=== PATIENT | female | born 1945 | race Caucasian/White ===

== ENCOUNTER 2017-01-29 15:58 | Observation (INO) | payer MEDICARE ==
[2017-01-29] MEDS ORDERED: NS 0.9% 1000 ML* 1,000 ML IV ONE (16:07)
[2017-01-29] MEDS ORDERED: Morphine INJ* 4 MG/ML 1 ML SYRINGE IV ONE ×2 (16:23→17:36)
[2017-01-29] MEDS ORDERED: Ondansetron INJ* 2 MG/ML VIAL IV ONE (16:23)
[2017-01-29 16:27] LABS: Hematocrit 46 % (35-47); Hemoglobin 14.6 g/dl (12.0-16.0); Mean Corpuscular HGB Conc 32 g/dl (31-36); Mean Corpuscular Hemoglobin 28 pg (27-31); Mean Corpuscular Volume 86 fL (80-97); Mean Platelet Volume 8 um3 (7.4-10.4); Red Blood Count 5.31 10^6/ul (4.0-5.4); Red Cell Distribution Width 14 % (10.5-15); White Blood Count 25.6 10^3/ul (3.5-10.8)
[2017-01-29 16:31] LABS: Add Diff/Slide Review? Slide Review Added; Comments Flag Yes
--- NOTE | 2017-01-29 16:41 | RAD ---
indication: Pain after the patient fell from a ladder. COMPARISON: None A CT scan of the brain and c-spine was performed without intravenous contrast enhancement. Contiguous axial sections were obtained from the lung apices through the vertex. BRAIN: The ventricles, cisterns and sulci are within normal limits. No significant focal abnormality or mass effect is seen. The carter-white differentiation is adequately maintained. There is no evidence for intracranial hemorrhage. No significant bony abnormality is present. The mastoid air cells are appropriately aerated. The visualized paranasal sinuses are clear. C-SPINE: On the sagittal view images there is straightening of the normal cervical lordosis. The vertebral bodies and facet joints appear to be appropriately aligned. Multilevel degenerative changes include loss of intervertebral disc height and marginal osteophyte formation, most severely affecting C4/C5. The dens is intact. The atlantodental interval is not widened. Degenerative changes at the atlantodental interval include vacuum disc phenomenon and marginal osteophyte formation of the surrounding ligaments. There is no precervical soft tissue swelling There is no hyperdense material in the cervical canal to indicate hemorrhage. The visualized musculature and soft tissues are normal. There is no gross lymphadenopathy visualized. The visualized portion of the lung apices are clear. IMPRESSION: 1. No calvarial fracture or acute intracranial hemorrhage. 2. Degenerative changes of the cervical spine and nonspecific straightening of the normal cervical lordosis without evidence of an acute fracture or dislocation.
[2017-01-29 16:43] LABS: Albumin 4.3 g/dL (3.2-5.2); BUN/Creatinine Ratio 29.5 (8-20); Calcium 9.9 mg/dL (8.6-10.3); EGFR African American 61.9 (>60); EGFR Non-African American 48.1 (>60); Globulin 3.2 g/dL (2-4); Magnesium 1.9 mg/dL (1.9-2.7); Potassium 3.6 mmol/L (3.5-5.0); Total Bilirubin 0.5 mg/dL (0.2-1.0); Total Protein 7.5 g/dL (6.4-8.9)
[2017-01-29 17:01] LABS: TSH (Thyroid Stimulating Horm) 4.82 mcIU/mL (0.34-5.60)
--- NOTE | 2017-01-29 17:59 | RAD ---
INDICATION: Left shoulder pain after falling from a ladder COMPARISON: None. TECHNIQUE: 4 views of the left shoulder were obtained. FINDINGS: There is a comminuted fracture at the surgical neck of the left humerus. There is a small degree of impaction of the shaft of the humerus into the humeral head. The remaining visualized bones appear to be intact and appropriately aligned. IMPRESSION: COMMINUTED FRACTURE THROUGH THE SURGICAL NECK OF THE LEFT HUMERUS.
--- NOTE | 2017-01-29 18:03 | RAD ---
INDICATION: Low back pain after falling from a ladder. COMPARISON: CT abdomen pelvis August 12, 2016 TECHNIQUE: 2 views of the lumbar spine were obtained. FINDINGS: There is compression deformity of the L1 vertebral body on the lateral view radiograph. There are no retropulsion of fragments or definite abrupt cortical discontinuity. The vertebral bodies are otherwise appropriately aligned. . IMPRESSION: Age indeterminate compression deformity of the L1 vertebral body, new since the August 12, 2016 CT examination. Although there are no acute findings such as abrupt cortical discontinuity or retropulsion of fragments, an acute compression fracture is not excluded.
--- NOTE | 2017-01-29 18:16 | RAD ---
INDICATION: Low back pain after falling off of a ladder COMPARISON: Chest x-ray dated August 12, 2016 TECHNIQUE: Single AP view of the chest was obtained. FINDINGS: The heart and mediastinum exhibit normal size and contour. The lungs are grossly clear. There is no evidence of a large pleural effusion. There is a comminuted fracture at the left humeral surgical neck. IMPRESSION: 1. No radiographic evidence for acute cardiopulmonary abnormality on this single AP view chest x-ray. 2. Comminuted fracture at the left humerus surgical neck.
[2017-01-29 18:36] LABS: Urine Bacteria 3+ (Absent); Urine Bilirubin Negative (Negative); Urine Glucose Negative (Negative); Urine Nitrite Positive (Negative)
[2017-01-29] MEDS ORDERED: Ciprofloxacin 400MG IVPREMIX(* 400 MG/200 ML BAG IVPB ONE (18:48)
[2017-01-29] MEDS ORDERED: NS 0.9% 1000 ML* 1,000 ML IV SCH (19:15)
[2017-01-29] MEDS: Acetaminophen TAB* 325 MG PO PRN (19:35)
--- NOTE | 2017-01-29 20:10 | RAD ---
CLINICAL HISTORY: Abdominal pain COMPARISON: None TECHNIQUE: Noncontrast CT examination of the abdomen and pelvis from the lung bases through the initial tuberosities. FINDINGS: VISUALIZED LUNG BASES: There are dependent hypoventilatory changes the bilateral lung bases. Otherwise the visualized lung bases are grossly clear. There is no pleural effusion. ABDOMEN AND PELVIS: Evaluation of the solid organs and vasculature is limited without intravenous contrast. The liver, spleen, pancreas and adrenal glands are grossly normal in appearance. There are innumerable hyperattenuating stones in the dependent portion of the gallbladder. At the lower pole the right kidney there is a 9 mm calcification (coronal image 65). 3 additional right-sided punctate calcifications are noted. At the lower pole the left kidney there is a punctate calcification (coronal image 75). There is no hydronephrosis bilaterally. The small and large bowel are not distended. The partially gas-filled appendix is identified in the right lower quadrant measuring 7 mm in diameter (axial image 115). There is no gross retroperitoneal or mesenteric lymphadenopathy. The pelvic viscera is normal in appearance. There is coarse atherosclerotic calcification of the infrarenal abdominal aorta that extends into the bilateral common iliac arteries. There is an acute appearing compression fracture of the L1 vertebral body. There is no retropulsion of fracture fragments. Degenerative changes at other levels include loss of intervertebral disc height. IMPRESSION: 1. Acute appearing compression fracture of the L1 vertebral body without retropulsion of bony fragments. 2. Bilateral renal calculi without signs of acute inflammatory change or urinary obstruction. 3. Cholelithiasis. 4. Additional chronic and degenerative changes described in the body of the report.
[2017-01-29] MEDS: Morphine INJ* 2 MG/ML 1 ML SYRINGE IV PRN (22:26)
[2017-01-29] MEDS: Hydroxychloroquine TAB* 200 MG PO SCH (23:03)
--- NOTE | 2017-01-30 01:25 | HP ---
CC: Dr. Dougherty; Francoise Zavaleta * HISTORY AND PHYSICAL: DATE OF ADMISSION: 01/29/17 PRIMARY CARE PROVIDER: Francoise Zavaleta. ORGAN PIPE MAKER METAL: Dr. Dougherty. CHIEF COMPLAINT: Fall from a ladder. HISTORY OF PRESENT ILLNESS: Ms. Frye is a 72-year-old female with a history of recent admission in July of 2016 for urosepsis with severe sepsis and hypotension due to obstructing urinary stone as well as history of rheumatoid arthritis, on Plaquenil, who fell from a ladder today. The patient stated that she was approximately 4 or 5 feet above ground on a ladder trying to adjust a painting on the wall. She stated that next thing she remembers is lying on the floor on her left shoulder hurting. She denies any chest pain or shortness of breath before or after the episode. She states that she feels that her bilateral flanks hurt somewhat. She denies any headache. She has left humerus fracture noted in the emergency department. Also, surprisingly enough, she has marked leukocytosis with WBCs of 25,000 and abnormal urinalysis. The patient is going to be placed on overnight observation with a diagnosis of syncope and most likely UTI. PAST MEDICAL HISTORY: 1. History of lupus, diagnosed in 2000, followed by Dr. Dougherty. 2. History of chronic sinusitis. 3. History of questionable TIA. 4. History of prolonged hospitalization at [facility] for urosepsis with nephrostomy tube on the left, status post removal of nephrostomy tube and cystoscopy for nephrolithiasis. MEDICATIONS: Include: 1. Loratadine 10 mg daily. 2. Paroxetine 20 mg daily. 3. Plaquenil 200 mg daily. 4. Naproxen 500 mg daily p.r.n. 5. Lasix 40 mg daily. ALLERGIES: No known drug allergies. FAMILY HISTORY: Positive for mother and father with lung cancer. SOCIAL HISTORY: The patient denies any tobacco use. She has rare alcohol use. She lives alone. Her healthcare proxy is Wero Frye, her son, his number is [phone]. REVIEW OF SYSTEMS: Please see history of present illness. The patient stated that she lives alone and she is independent with activities of daily living. She stated that she had been feeling okay in the past several days. Apart from that, today was a very extremely hot day outside at 95 degrees and it was hot in her cottage where she lives. She stated that her son was on his way to set up her air conditioning. Once again, she does not remember falling. She does not remember having any prodrome of symptoms before she woke up on the floor. All the remaining 14 systems were reviewed with the patient and were otherwise negative. PHYSICAL EXAMINATION GENERAL: The patient is a very pleasant 72-year-old female, who is in no acute distress. Alert, alert, and oriented x3. VITAL SIGNS: Blood pressure of 155/72, heart rate of 95 and regular, respiratory rate 20, oxygen saturation 95% on room air, temperature 98.3. HEENT: Head: Atraumatic, normocephalic. Eyes: Pupils equal, reactive to light and accommodation. Oropharynx clear. Mucosa moist. NECK: Supple. No JVD, no bruit bilaterally. There is no pain with checking the range of motion of the neck. RESPIRATORY: Clear to auscultation bilaterally. CARDIOVASCULAR: Regular rate and rhythm. No murmur. ABDOMEN: Soft, nontender. Bowel sounds present in all 4 quadrants. BACK: On evaluation of the back, there was no point tenderness over palpation of the vertebral bodies and there is no flank tenderness bilaterally. EXTREMITIES: There is no edema. Pulses are +2 bilaterally. No clubbing or cyanosis. There is pain with attempted range of movement in the left shoulder. Left shoulder is in sling during the evaluation. PSYCHIATRIC: Oriented x3, but no evidence of anxiety or depression. SKIN: On evaluation of the skin, the patient has a couple of superficial abrasions on the left distal lower extremity. She also has a scar of the nephrostomy tube in the left flank region. DIAGNOSTIC STUDIES/LAB DATA: Show white blood cell count of 25.6, hemoglobin of 14.6, hematocrit of 46, and platelets of . Sodium of 138, potassium 3.6 , chloride 104, carbon dioxide 27, BUN 33, creatinine 1.12. Liver function tests were unremarkable with alkaline phosphatase of 112. TSH of 4.82. Troponin of 0. Brain natriuretic peptide was 58. The patient's chest x-ray showed no radiographic evidence for acute cardiopulmonary abnormality. Comminuted fracture of the left humerus surgical neck. Lumbar spine x-ray, impression: "Age-indeterminate compression deformity of the L1 vertebral body, new since 08/12/16 CT evaluation. Although there are no acute findings such as abrupt cortical discontinuity or retropulsion of fragments, an acute compression fracture is not excluded." C-spine CT, impression: "No calvarial fracture or acute intracranial hemorrhage. Degenerative changes of the cervical spine and nonspecific straightening of the normal cervical lordosis without evidence of acute fracture or dislocation." Brain CT, impression: "The ventricles, cisterns, and sulci are within normal limits. No significant focal abnormality or mass effect seen. The vazquez-white differentiation is adequately maintained." Shoulder x-ray on the left, impression: "Comminuted fracture of the surgical neck of the left humerus." Please note that the patient's monitor worker shows normal sinus rhythm with a heart rate in the 80s. Once again, EKG is still pending at the time of dictation. ASSESSMENT AND PLAN: A 72-year-old female who apparently had a syncopal episode and fell off the ladder. It was very hot in her apartment/cottage today since the temperature outside was 95 degrees and she has no air conditioning and is most likely due to syncope. At this point, it is possible that she basically was overheated and she had a syncopal episode due to that, possibly due to orthostasis. It is also possible that she had cardiac arrhythmia. She may have an underlying infection since she has mild marked leukocytosis and +3 bacteria on her urinalysis. At this point, once we make sure and rule out that she does not have an obstructing stone in her ureter once again, she is going to be able to be observed on telemetry monitored bed with neuro checks every 2 hours and followup troponins. I will obtain transthoracic echocardiogram in the morning. In regards to the patient's leukocytosis and abnormal urinalysis, at this point , the patient most likely has a urinary tract infection. She is going to be placed on ceftriaxone. She received 1 dose of ciprofloxacin in the emergency department. In regards to the patient's lupus, the patient is going to be continued to be treated with Plaquenil. In regards to the patient's fractured humerus, I will ask orthopedic surgeon to see the patient in evaluation. For DVT prophylaxis, the patient is going to be placed on heparin subcutaneous. Code status is full and the patient's son is her surrogate. For the patient's depression, she is going to be continued on her paroxetine as at home. TIME SPENT: Approximately 65 minutes was spent on admission of this patient, more than half that time was spent [id number] with the patient during the interview and physical exam. [id number]/[facility] #: [id number] RISA
[2017-01-30] MEDS: Morphine INJ* 2 MG/ML 1 ML SYRINGE IV PRN ×2 (02:28→07:03)
[2017-01-30 06:20] LABS: Hematocrit 39 % (35-47); Hemoglobin 12.6 g/dl (12.0-16.0); Mean Corpuscular HGB Conc 33 g/dl (31-36); Mean Corpuscular Hemoglobin 28 pg (27-31); Mean Corpuscular Volume 87 fL (80-97); Mean Platelet Volume 8 um3 (7.4-10.4); Red Blood Count 4.45 10^6/ul (4.0-5.4); Red Cell Distribution Width 14 % (10.5-15); White Blood Count 12.8 10^3/ul (3.5-10.8)
[2017-01-30 06:48] LABS: BUN/Creatinine Ratio 30.1 (8-20); Calcium 8.9 mg/dL (8.6-10.3); EGFR African American 87.4 (>60); Potassium 3.9 mmol/L (3.5-5.0)
[2017-01-30] MEDS ORDERED: cefTRIAXone VIAL(*) 1,000 MG in NS 0.9% 50 ML* 50 ML IVPB SCH (08:00)
[2017-01-30] MEDS: Acetaminophen TAB* 325 MG PO PRN ×2 (08:31→14:12)
[2017-01-30] MEDS: Hydroxychloroquine TAB* 200 MG PO SCH (08:32)
[2017-01-30] MEDS ORDERED: PARoxetine HCL TAB* 20 MG PO SCH (09:00)
--- NOTE | 2017-01-30 11:13 | ECHO ---
Patient: JOSE LUIS MCKEON [facility] Rec#: [id number] : 1945 Date: 01/30/2017 Age: 72y Height: 168 cm / 66.1 in Weight: 71.4 kg / 157.4 lbs Sex: F BSA: 1.8 Room#: 438 Admit Date#: 01/29/2017 Type: Inpatient Referring: Chasidy Whiteside MD Reading: Prem Reardon MD Detailer Furniture: Lynne Dawson RN RDCS CC: Janes Vasquez MD Transthoracic Echocardiogram Indication: Syncope BP: 135/58 HR: 88 Rhythm: NSR Findings History: Lupus, possible TIA in past, nephrolithiasis with urosepsis Technical Comments: The study was technically limited due to the patient's inability to lay in the left lateral decubitus position. The patient's left arm is immobilized due to a fractured humerus and there is no access to the apical window. Dr. Whiteside is aware of this limitation to the exam. Completed at 1000. Left Ventricle: The left ventricular chamber size is decreased. Global left ventricular wall motion and contractility are within normal limits. The left ventricle appears hyperdynamic. The estimated ejection fraction is greater than 65%. There is an E to A reversal in the mitral valve flow pattern suggestive of diastolic dysfunction. Left Atrium: The left atrial chamber size is normal. Right Ventricle: The right ventricular chamber size and systolic function are within normal limits. Right Atrium: The right atrial cavity size is normal. Aortic Valve: The aortic valve is trileaflet. The aortic valve leaflets are mildly thickened. There is no evidence of aortic regurgitation. There is no evidence of aortic stenosis. Mitral Valve: The mitral valve leaflets are mildly thickened. There is no evidence of mitral regurgitation. There is no evidence of mitral stenosis. Tricuspid Valve: The tricuspid valve leaflets are normal. There is mild to moderate tricuspid regurgitation. There is evidence of mild pulmonary hypertension. Pulmonic Valve: The pulmonic valve structure is not well visualized. There is mild pulmonic regurgitation. There is no pulmonic stenosis. Pericardium: There is no significant pericardial effusion. A pericardial fat pad is visualized. Aorta: There is no dilatation of the ascending aorta. There is no dilatation of the aortic arch. The aortic root is normal in size. Pulmonary Artery: The main pulmonary artery appears normal. Venous: The inferior vena cava appears normal in size. There is a greater than 50% respiratory change in the inferior vena cava dimension. Conclusions Global left ventricular wall motion and contractility are within normal limits. The estimated ejection fraction is greater than 65%. There is an E to A reversal in the mitral valve flow pattern suggestive of diastolic dysfunction. The right ventricular chamber size and systolic function are within normal limits. There is no evidence of aortic stenosis. There is no evidence of mitral regurgitation. There is mild to moderate tricuspid regurgitation. There is evidence of mild pulmonary hypertension. There is no significant pericardial effusion. Measurements Name Value Normal Range RVIDd (AP) 2D 2.1 cm (0.9 - 2.6) IVSd (2D) 1 cm (0.6 - 1) LVPWd (2D) 1 cm (0.6 - 1) LVIDd (2D) 2.6 cm (3.6 - 5.4) LVIDs (2D) 1.6 cm - LV FS (2D) 38 % (25 - 45) Aortic Annulus 2.4 cm (1.4 - 2.6) Ao root diameter (2D) 3.1 cm (2.1 - 3.5) Ascending Ao 3 cm (2.1 - 3.4) Aortic arch 2 cm (1.8 - 3.4) LA dimension (AP) 2D 3 cm (2.3 - 3.8) Name Value Normal Range MV E-wave Vmax 0.84 m/sec - MV deceleration time 187 msec - MV A-wave Vmax 1 m/sec - MV E:A ratio 0.8 ratio - Name Value Normal Range AV Vmax 1.2 m/sec - AV peak gradient 6 mmHg - LVOT Vmax 0.87 m/sec - EMILY Vmax 0.53 m/sec - Name Value Normal Range TR Vmax 2.9 m/sec - TR peak gradient 34 mmHg - RAP 3 mmHg - RVSP 37 mmHg - IVC diameter 1.6 cm - Name Value Normal Range PV Vmax 1 m/sec -
[2017-01-30 11:47] VITALS: BP 131/54
--- NOTE | 2017-01-30 12:23 | CONS ---
CONSULTATION REPORT: DATE OF CONSULT: 01/30/17 HISTORY OF PRESENT ILLNESS: Ms. Frye is an active 72-year-old woman who does have long-term history of rheumatoid arthritis. She fell from a ladder a couple of feet up in the air on the day prior to this dictation. She was admitted through the emergency room with a proximal left humerus fracture and urosepsis. She also had a possible diagnosis of syncope. MEDICATIONS: Include: 1. Loratadine. 2. Paroxetine. 3. Plaquenil. 4. Naproxen. 5. Lasix. SOCIAL HISTORY: She is otherwise active, enjoys gardening and art work. PHYSICAL EXAM: On examination, she is quite alert and in no acute distress in the hospital bed. She is able to sit up and dangle her feet, which helps me with examining and caring for her left shoulder fracture. She is in a cloth sling, which is removed with a pair of scissors. She is able to extend her wrist, flex all her digits and has intact sensation to 3 dermatomes left hand. She has a warm hand and a strong radial pulse. There is tenderness and ecchymosis in the left proximal humerus. She has mild pain with abduction passively. In this position, I was able to place an ABD pad into her armpit, some [place] around her upper brachium down to the wrist, a plaster U-splint, and then an Rik wrap with the sling. This seemed to give her some comfort. She is going to be discharged today per Medicine and will follow up with Orthopedics, preferably Dr. Gann, in 7 to 10 days' time. [id number]/[facility] #: [id number] RISA
--- NOTE | 2017-01-31 06:24 | DS ---
CC: Dr. Mckeon; Dr. Dougherty; Dr. Tuttle; Dr. Gann * DISCHARGE SUMMARY: DATE OF ADMISSION: 01/29/17 DATE OF DISCHARGE: 01/30/17 PRIMARY CARE PROVIDER: Debora Mckeon MD DISCHARGE DIAGNOSES: 1. Syncope, collapsed with loss of consciousness, most likely due to urinary tract infection and heat exposure. 2. Urinary tract infection. 3. Left humerus fracture. 4. L1 compression fracture. 5. Acute kidney injury due to #1. SECONDARY DIAGNOSES: 1. History of lupus. 2. History of chronic sinusitis. 3. History of possible TIA. 4. History of prolonged hospitalization at [facility] for urosepsis with nephrostomy tube on the left, status post removal of nephrostomy tube and cystoscopy for nephrolithiasis in the past. MEDICATIONS AT DISCHARGE: Include: 1. Loratadine 10 mg daily. 2. Paroxetine 20 mg daily. 3. Plaquenil 200 mg daily. 4. Naproxen 500 mg on a p.r.n. basis. 5. Lasix 40 mg on a p.r.n. basis. 6. Oxycodone 5 mg every 6 hours p.r.n. pain. The patient was prescribed a total of 20 tablets. I-STOP was checked and the patient has not had any controlled medications prescribed in the recent past. 7. Ciprofloxacin 500 mg p.o. b.i.d. for a total of 4 days. 8. Tylenol 500 mg every 6 hours p.r.n. pain. CONSULTATIONS: During the hospital stay included Dr. Tuttle from Orthopedic Surgery in regards of left humerus fracture. LABORATORY DATA AND STUDIES PERFORMED DURING THE HOSPITAL STAY: Included: On ; white blood cell count of 12.8, hemoglobin of 12.6, hematocrit of 39, and platelets 173. Sodium was 137, potassium 3.9, chloride 109, carbon dioxide 24, BUN 25, creatinine 0.83. The patient's troponins had been 0 throughout the hospital stay. Her TSH was 4.82 on admission. Urinalysis showed +2 bacteria and positive for nitrite. CT of the abdomen and pelvis to rule out obstructive uropathy showed, impression : "Acute-appearing compression fracture of the L1 vertebral body without retropulsion of all bony fragments. Bilateral renal calculi without signs of acute inflammatory change or urinary obstruction. Cholelithiasis and degenerative changes as described in the body of the report." Transthoracic echocardiogram obtained on 01/30/17 showed EF of 65% with global left ventricular wall motion and contractility within normal limits. There was evidence of moderate tricuspid regurgitation and mild pulmonary hypertension. Shoulder x-ray on the left, impression: "Comminuted fracture through the surgical length of the left humerus." C-spine CT obtained on admission, impression: "No calvarial fracture or acute intracranial hemorrhage. Degenerative changes of the cervical spine and nonspecific straightening of the normal cervical lordosis without evidence of acute fracture or dislocation." Preliminary urine cultures are positive for 75,000 to 100,000 colonies of Klebsiella pneumoniae. The sensitivities are pending at the time of dictation. HOSPITALIZATION COURSE: Trinidad Frye is a 72-year-old female with history of prolonged hospitalization for urosepsis in July 2016, who presented to the hospital after she fell off the ladder and lost consciousness. The patient in fact did not remember falling off the ladder and syncope diagnosis was entertained. The patient also was noted to have L1 compression fracture, which was new, left humeral neck fracture. The patient also was noted to have abnormal urinalysis and marked leukocytosis at 25,000. Her creatinine indicated acute kidney injury at the level of 1.12 that resolved after initial hydration. The patient was observed on telemetry monitored bed with no arrhythmias noted. A transthoracic echocardiogram showed no marked abnormalities apart from tricuspid regurgitation. Patient's acute kidney injury resolved after intravenous fluids as mentioned above. A CT of the abdomen to rule out nephrolithiasis since patient had been asymptomatic with ureteral obstruction in the past showed positive for nephrolithiasis but no obstruction. The patient was treated with ceftriaxone with good results and leukocytosis almost resolving by the time of discharge. Dr. Tuttle saw the patient in consultation due to her left shoulder fracture and placed the patient in a splint. At discharge, patient was recommended to follow up with her primary care provider in approximately [address] Tuttle recommended for the patient to follow up with Dr. Gann in approximately 7 to 10 days in regards to left shoulder fracture. Patient is going to be prescribed remaining 4 days of treatment of ciprofloxacin for her Klebsiella pneumoniae UTI. Please also note that the patient did not suffer from any marked discomfort from her L1 fracture, but she was prescribed narcotics for the left shoulder pain. She is going to be discharged home but in fact she is going to stay with her son for the next few days following her acute hospital stay. PHYSICAL EXAMINATION AT THE TIME DISCHARGE: Blood pressure 131/54, heart rate of 93 and regular, respiratory rate 20, oxygen saturation 92% on room air, temperature 98.9. General: The patient is a very pleasant 72-year-old female, who is in no acute distress, alert and oriented x3. HEENT: Head atraumatic, normocephalic. Eyes: Pupils equal and reactive to light and accommodation. Oropharynx clear. Mucosa moist. Neck: Supple. No JVD. No bruits bilaterally. Cardiovascular: Regular rate and rhythm. No murmur. Respiratory : Clear to auscultation bilaterally. Abdomen: Soft, nontender. Bowel sounds present in all 4 quadrants. Extremities: There is no edema. Pulses are 2+ bilaterally. No clubbing or cyanosis. Left upper extremity is in a splint. Evaluation of the skin, an ecchymotic area noted on the left shoulder. Very minimal abrasion on the left distal leg noted anteriorly. Neuro Evaluation: Speech is clear. Cranial nerves II through XII grossly intact. Motor strength is 5/5 bilaterally. Please note that this is a short summary of the patient's hospital stay. Please refer to further medical records for details. TIME SPENT: Approximately 40 minutes was spent on the patient's discharge. [id number] #: [id number] MTDD
== END 2017-01-30 15:21 | disposition home or self-care (01) ==
LOC: ED 15:58 → MEDTELE 18:26 → OBSVTOIN 18:26 → INTOOBSV 18:26
PROVIDERS: ADMIT Internal Medicine; ATTEND Internal Medicine
DX: R55 Syncope and collapse (principal); N39.0 Urinary tract infection, site not specified; S32.019A Unspecified fracture of first lumbar vertebra, initial encounter for closed fracture; S42.212A Unspecified displaced fracture of surgical neck of left humerus, initial encounter for closed fracture; W11.XXXA Fall on and from ladder, initial encounter; N17.9 Acute kidney failure, unspecified; M32.9 Systemic lupus erythematosus, unspecified; Y92.009 Unspecified place in unspecified non-institutional (private) residence as the place of occurrence of the external cause; M06.9 Rheumatoid arthritis, unspecified; Z79.899 Other long term (current) drug therapy
CPT/HCPCS: 36415; 70450; 71010; 72100; 72125; 74176; 80048; 80053; 81003; 81015; 83605; 83735; 83880; 84443; 84484; 85025; 87077; 87086; 87186; 93306; 96361; 96365; 96366; 96375; 96376; 99285; A9270-GY; G0378; G8978-GP-CI; G8979-GP-CH; G8980-GP-CI; G8987-GO-CK; G8988-GO-CI; J0696; J0744; J2270; J2405

== ENCOUNTER 2018-08-23 14:32 | Emergency (ER) | payer MEDICARE ==
[2018-08-23] MEDS ORDERED: predniSONE TAB* 20 MG PO ONE (15:02)
[2018-08-23] MEDS ORDERED: ValACYclovir (*) 1 GM TAB PO ONE (15:03)
[2018-08-23 15:23] LABS: Hematocrit 42 % (35-47); Hemoglobin 14.4 g/dl (12.0-16.0); Mean Corpuscular HGB Conc 34 g/dl (31-36); Mean Corpuscular Hemoglobin 30 pg (27-31); Mean Corpuscular Volume 88 fL (80-97); Mean Platelet Volume 7.8 fL (7.4-10.4); Platelet Count 237 10^3/ul (150-450); Red Cell Distribution Width 13 % (10.5-15); White Blood Count 7.9 10^3/ul (3.5-10.8)
[2018-08-23 15:48] LABS: Albumin 4.1 g/dL (3.2-5.2); Albumin/Globulin Ratio 1.6 (1-3); BUN/Creatinine Ratio 30.8 (8-20); Calcium 9.6 mg/dL (8.6-10.3); EGFR African American 73.7 (>60); EGFR Non-African American 60.9 (>60); Globulin 2.5 g/dL (2-4); Potassium 4.1 mmol/L (3.5-5.0); Total Bilirubin 0.6 mg/dL (0.2-1.0); Total Protein 6.6 g/dL (6.4-8.9)
--- NOTE | 2018-08-23 15:52 | ED ---
Neurological HPI - HPI Summary HPI Summary: The patient is a 73 y/o F presenting to [facility] accompanied by son with a chief complaint of sudden onset difficulty moving the right side of her face starting yesterday at 1200. She noticed it when she went to drink coffee, and it spilled all over her as it dribbled out of her mouth. She then noticed that she was unable to close her right eye. The discomfort is not numbness or tingling of the face, but as a feeling of being able to move it without her mouth going where she wants it to. She additionally c/o right ear pain and right occipital headache. She denies nasal discharge. She reports that she has recently been sick with a sinus infection, in which she was on Amoxicillin for. 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 She denies use of blood thinners, past accidents, recent falls, tick bites. No smoking or EtOH. - History of Current Complaint Chief Complaint: EDNeurologicalDeficit Stated Complaint: SLOUCHING ON LEFT SIDE OF FACE Time Seen by Provider: 08/23/18 14:38 Hx Obtained From: Patient Onset/Duration: Sudden Onset, Started hours ago - at 1200 yesterday, Still Present Timing: Sudden Onset Onset Severity: Moderate Current Severity: Moderate Neurological Deficit Location: Facial - right Headache Location: Occipital (Right) Pain Intensity: 0 Pain Scale Used: 0-10 Numeric Aggravating: Nothing Alleviating: Nothing Associated Signs and Symptoms: Positive: Headache - right occipital, Recent Illness - sinus infection - Allergy/Home Medications Allergies/Adverse Reactions: Allergies Allergy/AdvReac Type Severity Reaction Status Date / Time No Known Allergies Allergy Verified 08/23/18 14:37 Home Medications: Home Medications Amoxicillin PO (*) [Amoxicillin 500 MG CAP*] 500 mg PO TID 08/23/18 [History Confirmed 08/23/18] Furosemide TAB* [Lasix TAB*] 40 mg PO DAILY 08/23/18 [History Confirmed 08/23/18 ] Gabapentin CAP(*) [Neurontin 100 mg CAP(*)] 100 - 300 mg PO TID 08/23/18 [ History Confirmed 08/23/18] LoraTADine TAB(NF) [Claritin 10 MG TAB(NF)] 10 mg PO DAILY 08/23/18 [History Confirmed 08/23/18] Naproxen TAB* [Naprosyn 250 mg TAB*] 500 mg PO BID 08/23/18 [History Confirmed 08/23/18] Potassium Chlor TAB* [Klor Con ER TAB 10 MEQ*] 10 meq PO DAILY 08/23/18 [ History Confirmed 08/23/18] Sertraline* [Zoloft*] 50 mg PO DAILY 08/23/18 [History Confirmed 08/23/18] PMH/Surg Hx/FS Hx/Imm Hx Endocrine/Hematology History: Reports: Other Endocrine/Hematological Disorders - Lupus Denies: Hx Diabetes Cardiovascular History: Denies: Hx Congestive Heart Failure, Hx Hypertension History: Reports: Hx Kidney Stones, Other Problems/Disorders - Urosepsis Musculoskeletal History: Reports: Other 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 Sensory History: Reports: Hx Cataracts, Hx Contacts or Glasses - reading glasses Denies: Hx Hearing Aid Opthamlomology History: Reports: Hx Cataracts, Hx Contacts or Glasses - reading glasses Psychiatric History: Reports: Hx Anxiety, Hx Depression - Surgical History Surgery Procedure, Year, and Place: Kidney stone Sx Infectious Disease History: No Infectious Disease History: Denies: Traveled Outside the [place] in Last 30 Days - Family History Known Family History: Negative: Cardiac Disease, Diabetes - Social History Alcohol Use: None Hx Substance Use: No Substance Use Type: Reports: None Hx Tobacco Use: No Smoking Status (MU): Never Smoked Tobacco Type: Cigarettes Review of Systems Negative: Fever, Chills Positive: Other - unable to close right eye. Negative: Erythema Positive: Ear Ache - right, Other - right mastoid pain. Negative: Sore Throat, Nasal Discharge Negative: Chest Pain Negative: Shortness Of Breath, Cough Negative: Abdominal Pain, Vomiting, Nausea Negative: dysuria, hematuria Negative: Myalgia, Edema Negative: Rash Neurological: Other - POSITIVE: difficulty using right side of face; NEGATIVE: dizziness, tingling in face Positive: Headache - right occipital All Other Systems Reviewed And Are Negative: Yes Physical Exam - Summary Physical Exam Summary: Constitutional: Well-developed, Well-nourished, Alert. (-) Distressed Skin: Warm, Dry HENT: Normocephalic; Atraumatic Eyes: Conjunctiva normal Neck: Musculoskeletal ROM normal neck. (-) JVD, (-) Stridor, (-) Tracheal deviation Cardio: Rhythm regular, rate normal, Heart sounds normal; Intact distal pulses; The pedal pulses are 2+ and symmetric. Radial pulses are 2+ and symmetric. (-) Murmur Pulmonary/Chest wall: Effort normal. (-) Respiratory distress, (-) Wheezes, (-) Rales Abd: Soft, (-) epigastric tenderness, (-) Distension, (-) Guarding, (-) Rebound Musculoskeletal: (-) Edema Lymph: (-) Cervical adenopathy Neuro: Alert, Oriented x3 Psych: Mood and affect Normal Triage Information Reviewed: Yes Vital Signs On Initial Exam: Initial Vitals Temp Pulse Resp BP Pulse Ox 98.7 F 89 18 183/97 98 08/23/18 14:36 08/23/18 14:36 08/23/18 14:36 08/23/18 14:36 08/23/18 14:36 Vital Signs Reviewed: Yes Diagnostics - Vital Signs Vital Signs Temp Pulse Resp BP Pulse Ox 08/23/18 14:36 98.7 F 89 18 183/97 98 - Laboratory Lab Results: Lab Results 08/23/18 Range/Units 15:14 WBC 7.9 (3.5-10.8) 10^3/ul RBC 4.80 (4.00-5.40) 10^6/ul Hgb 14.4 (12.0-16.0) g/dl Hct 42 (35-47) % MCV 88 (80-97) fL MCH 30 (27-31) pg MCHC 34 (31-36) g/dl RDW 13 (10.5-15) % Plt Count 237 (150-450) 10^3/ul MPV 7.8 (7.4-10.4) fL Result Diagrams: 08/23/18 15:14 08/23/18 15:14 Lab Statement: Any lab studies that have been ordered have been reviewed, and results considered in the medical decision making process. NIH Scale - NIH Scale Level of Consciousness: Alert/Keenly Responsive Ask Patient the Month and His/Her Age: Both Correct Ask Pt to Open/Close Eyes and Secured Entrance Monitor/Release Non-Paretic Hand: Both Correctly Best Gaze (Only Horizontal Eye Movement): Normal Visual Field Testing: No Visual Loss Facial Paresis-Pt to Smile & Close Eyes or Grimace Symmetry: Normal/Symmetrical Motor Function - Right Arm: No Drift-Holds 10 Seconds Motor Function - Left Arm: No Drift-Holds 10 Seconds Motor Function - Right Leg: No Drift-Holds 10 Seconds Motor Function - Left Leg: No Drift-Holds 10 Seconds Limb Ataxia-Must be out of Proportion to Weakness Present: Absent Sensory (Use Pinprick to Test Arms/Legs/Trunk/Face): Normal Best Language (Describe Picture, Name Items): No Aphasia Dysarthria (Read Several Words): Normal Extinction and Inattention: No Abnormality Total Score: 0 Re-Evaluation - Re-Evaluation First Eval Re-Evaluation Time: 16:30 Change: Improved Comment: Her ear is feeling better. We spoke concerning results. We discussed discharge home. Course/Dx - Course Course Of Treatment: The patient is a 73 y/o F presenting to [facility] accompanied by son with a chief complaint of sudden onset difficulty moving the right side of her face starting yesterday at 1200. She had difficulty drinking coffee, and her right eye wouldnt close. She additionally c/o right ear pain and right occipital headache. She denies nasal discharge and numbness/tingling in the face. She reports that she has recently been sick with a sinus infection, in which she was on Amoxicillin for. 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 She denies use of blood thinners, past accidents, recent falls, tick bites. Upon physical examination, the patient exhibits erythema on the right tympanic membrane, completely upper facial paralysis, and no wrinkling of the right forehead. In the ED course, the patient was given Prednisone and Valtrex. Bloodwork is insignificant. She is diagnosed with Clyman Palsy. She will be discharged home with a prescription for Prednisone and Valtrex, education materials, and follow up with PCP in 2 days. She agrees with this plan and understands the need for return to the ED if symptoms worsen. - Diagnoses Provider Diagnoses: James's palsy Discharge - Sign-Out/Discharge Documenting (check all that apply): Patient Departure - Patient will be discharged home. - Discharge Plan Condition: Stable Disposition: HOME Prescriptions: predniSONE TAB* [Deltasone 10 MG TAB*] 10 mg PO DAILY #52 tab ValACYclovir (*) [Valtrex 500 mg (*)] 500 mg PO TID #42 tab Patient Education Materials: James Palsy (ED) Referrals: Janes Vasquez MD [Primary Care Provider] - 3 Days Additional Instructions: Please take medication as prescribed. Follow up with your primary care provider in 2-3 days. RETURN TO THE EMERGENCY DEPARTMENT FOR CHANGING OR WORSENING SYMPTOMS. - Billing Disposition and Condition Condition: STABLE Disposition: Home - Attestation Statements Document Initiated by Jeremiah: Yes Documenting Scribe: Diana Yeh Provider For Whom Jeremiah is Documenting (Include Credential): Dr. Keven Lam MD Scribe Attestation: Diana Levin scribed for Dr. Keven Lam MD on 08/23/18 at 1646. Scribe Documentation Reviewed: Yes Provider Attestation: The documentation as recorded by the Diana pink accurately reflects the service I personally performed and the decisions made by me, Dr. Keven Lam MD Status of Scribe Document: Viewed
[2018-08-23 16:43] VITALS: BP 145/86
== END 2018-08-23 16:42 | disposition home or self-care (01) ==
LOC: ED 14:32
DX: G51.0 Bell's palsy (principal); M32.9 Systemic lupus erythematosus, unspecified
CPT/HCPCS: 36415; 80053; 85027; 86618; 99283; A9270-GY; J7512

== ENCOUNTER 2022-08-17 20:58 | Inpatient (IN) ==
[2022-08-17 21:41] LABS: INR 1.11 (0.88-1.18)
[2022-08-17 21:52] LABS: Hematocrit 39 % (35-47); Hemoglobin 12.8 g/dL (12.0-16.0); Mean Corpuscular HGB Conc 33 g/dL (31-36); Mean Corpuscular Hemoglobin 29 pg (27-31); Mean Corpuscular Volume 86 fL (80-97); Mean Platelet Volume 8.1 fL (7.4-10.4); Platelet Count 118 10^3/uL (150-450); Red Cell Distribution Width 14 % (10-15); White Blood Count 3.2 10^3/uL (3.5-10.8)
[2022-08-17 21:59] LABS: Albumin 3.2 g/dL (3.2-5.2); Albumin/Globulin Ratio 1.3 (1-3); Calcium 8.8 mg/dL (8.6-10.3); Creatinine, Serum 2.27 mg/dL (0.51-0.95); Globulin 2.5 g/dL (2-4); Potassium 3.1 mmol/L (3.5-5.0); Total Bilirubin 1.5 mg/dL (0.2-1.0); Total Protein 5.7 g/dL (6.4-8.9)
[2022-08-17 22:04] LABS: Urine Appearance Turbid; Urine Bilirubin Negative (Negative); Urine Blood 2+ (Negative); Urine Color Yellow; Urine Glucose Negative (Negative); Urine Ketones Negative (Negative); Urine Nitrite Positive (Negative); Urine Protein 2+(100 mg/dL) (Negative); Urine Specific Gravity 1.013 (1.002-1.030); Urine Urobilinogen Negative (Negative)
[2022-08-17 22:12] LABS: Urine Bacteria 2+ (Absent); Urine Red Blood Cell 3+(>10/hpf) (Absent); Urine Squamous Epithelial Cell Present (Absent); Urine White Blood Cell 3+(>20/hpf) (Absent)
[2022-08-17] MEDS ORDERED: Lactated Ringers 1000 ml BAG 1,000 ML IV ONE (22:21)
[2022-08-17] MEDS ORDERED: cefTRIAXone 1 gm/50 mL D5W 1 GM/50 ML BAG IV ONE (22:21)
[2022-08-17 22:55] LABS: ABS Eosinophils 0.1 10^3/ul (0-0.6); ABS Lymphocytes 0.1 10^3/ul (1.0-4.8); ABS Neutrophils 2.9 10^3/ul (1.5-7.7); Eosinophil % 1.9 %; Lymphocyte % 4.1 %; Nucleated Red Blood Cells % 0.3
[2022-08-17 22:56] LABS: High Sensitivity Troponin 1 Hr 143 pg/mL (<15)
[2022-08-18] MEDS ORDERED: Lactated Ringers 1000 ml BAG 1,000 ML IV ONE ×3 (01:06→20:00)
[2022-08-18] MEDS ORDERED: Famotidine IV 10 MG/ML 2 ml VIAL (20 mg) IV SLOW PU ONE (04:56)
[2022-08-18 05:51] LABS: High Sensitivity Troponin 3 Hr 125 pg/mL (<15)
[2022-08-18] MEDS ORDERED: cefTRIAXone 1 gm/50 mL D5W 1 GM/50 ML BAG IV ONE (09:00)
[2022-08-18] MEDS ORDERED: fentaNYL 100 mcg/2 ml 50 MCG/ML VIAL ONE (09:04)
[2022-08-18] MEDS ORDERED: Midazolam 2 mg/2 ml VIAL 1 mg/ml 2 ml VIAL (2 mg) ONE (09:04)
[2022-08-18] MEDS ORDERED: Scopolamine 1 mg/72hr PATCH TRANSDERM PRN (09:29)
[2022-08-18] MEDS ORDERED: Potassium Chlor 20 meq TAB.ER PO ONE (09:30)
[2022-08-18 11:57] LABS: ABS Eosinophils 0.1 10^3/ul (0-0.6); ABS Monocytes 1.2 10^3/ul (0-0.8); ABS Neutrophils 12.5 10^3/ul (1.5-7.7); Eosinophil % 0.5 %; Hematocrit 34 % (35-47); Hemoglobin 11.2 g/dL (12.0-16.0); Lymphocyte % 6.7 %; Mean Corpuscular HGB Conc 33 g/dL (31-36); Mean Corpuscular Hemoglobin 28 pg (27-31); Mean Corpuscular Volume 87 fL (80-97); Platelet Count 123 10^3/uL (150-450); Red Blood Count 3.95 10^6 /uL (3.70-4.87); Red Cell Distribution Width 14 % (10-15); White Blood Count 14.8 10^3/uL (3.5-10.8)
[2022-08-18 12:05] LABS: INR 1.04 (0.88-1.18)
[2022-08-18] MEDS: Enoxaparin 30 MG/0.3 ML SYR SUBCUT SCH (12:18)
[2022-08-18 12:44] LABS: Albumin 2.9 g/dL (3.2-5.2); Albumin/Globulin Ratio 1.3 (1-3); Calcium 8.2 mg/dL (8.6-10.3); Creatinine, Serum 2.2 mg/dL (0.51-0.95); Globulin 2.2 g/dL (2-4); Potassium 3.7 mmol/L (3.5-5.0); Total Bilirubin 0.7 mg/dL (0.2-1.0); Total Protein 5.1 g/dL (6.4-8.9); eGFR CKD-EPI 22.8 (>60)
[2022-08-18] MEDS ORDERED: cefTRIAXone 1 gm/50 mL D5W 1 GM/50 ML BAG IV SCH (21:00)
[2022-08-19 08:13] LABS: Hematocrit 35 % (35-47); Hemoglobin 11.3 g/dL (12.0-16.0); Mean Corpuscular HGB Conc 32 g/dL (31-36); Mean Corpuscular Hemoglobin 28 pg (27-31); Mean Corpuscular Volume 87 fL (80-97); Mean Platelet Volume 8.4 fL (7.4-10.4); Platelet Count 145 10^3/uL (150-450); Red Blood Count 4.07 10^6 /uL (3.70-4.87); Red Cell Distribution Width 14 % (10-15); White Blood Count 13.2 10^3/uL (3.5-10.8)
[2022-08-19 08:56] LABS: Calcium 8.2 mg/dL (8.6-10.3); Creatinine, Serum 1.89 mg/dL (0.51-0.95); Potassium 4.1 mmol/L (3.5-5.0); eGFR CKD-EPI 27.4 (>60)
[2022-08-19 10:02] LABS: ABS Eosinophils 0.3 10^3/ul (0-0.6); ABS Lymphocytes 0.8 10^3/ul (1.0-4.8); ABS Monocytes 1.6 10^3/ul (0-0.8); ABS Neutrophils 10.4 10^3/ul (1.5-7.7); Eosinophil % 2.3 %
[2022-08-19] MEDS: Enoxaparin 30 MG/0.3 ML SYR SUBCUT SCH (10:16)
[2022-08-19 11:10] VITALS: BP 138/83
== END 2022-08-19 15:00 | disposition home or self-care (01) | DRG 689 ==
LOC: ED 20:58 → SUATTDRO 08-18 07:49 → EDHOLD 08-18 07:49 → MED 08-18 11:40
PROVIDERS: ADMIT Internal Medicine; ATTEND Student in an Organized Health Care Education/Training Program

== ENCOUNTER 2024-01-01 11:38 | Inpatient (IN) ==
[2024-01-01 12:33] LABS: ABS Basophils 0.1 10^3/uL (0.0-0.1); ABS Eosinophils 0.1 10^3/uL (0.0-0.5); ABS Lymphocytes 1.2 10^3/uL (1.0-4.8); ABS Monocytes 0.9 10^3/uL (0.0-0.9); ABS Neutrophils 8.7 10^3/uL (1.5-7.6); ABS Nucleated RBC 0.01 10^3/ul; Eosinophil % 0.9 %; Hematocrit 34.2 % (35-45); Hemoglobin 10.9 g/dL (11.5-14.3); Lymphocyte % 10.5 %; Mean Corpuscular Hemoglobin 25.7 pg (27-33); Mean Corpuscular Hgb Conc 31.8 g/dL (31-36); Mean Corpuscular Volume 80.7 fL (80-97); Mean Platelet Volume 7.6 fL (7.5-11.2); Nucleated Red Blood Cells % 0.1 %/100WBC (0.0-0.8); Platelet Count 369 10^3/uL (150-450); Red Blood Count 4.24 10^6/uL (3.63-4.92); Red Cell Distribution Width 21.7 % (12-17)
[2024-01-01 12:51] LABS: Albumin 3.9 g/dL (3.2-5.2); Albumin/Globulin Ratio 1.3 (1-3); C Reactive Protein 8.93 mg/L (<8.01); Calcium 9.8 mg/dL (8.6-10.3); Creatinine, Serum 1.28 mg/dL (0.51-0.95); Globulin 2.9 g/dL (2-4); Magnesium 2.1 mg/dL (1.9-2.7); Phosphorus 3.4 mg/dL (2.5-5.0); Potassium 4.2 mmol/L (3.5-5.0); Total Bilirubin 0.4 mg/dL (0.2-1.0); Total Protein 6.8 g/dL (6.4-8.9); eGFR CKD-EPI 43.4 (>60)
[2024-01-01] MEDS: Lactated Ringers 1000 ml BAG 1,000 ML IV ONE (12:51)
[2024-01-01 14:28] LABS: High Sensitivity Troponin 1 Hr 8 pg/mL (<15)
[2024-01-01] MEDS: Ondansetron 4 mg VIAL 2 MG/ML 2 ml VIAL IV ONE (15:51)
[2024-01-01 17:18] LABS: Urine Appearance Turbid; Urine Bilirubin Negative (Negative); Urine Blood Negative (Negative); Urine Color Light-Yellow; Urine Glucose Negative (Negative); Urine Ketones 1+ (Negative); Urine Nitrite 2+ (Negative); Urine Protein Negative (Negative); Urine Specific Gravity 1.022 (1.002-1.030); Urine Urobilinogen Negative (Negative)
[2024-01-01 17:24] LABS: Urine Bacteria 1+ /HPF (Absent); Urine Red Blood Cell Trace(0-2/hpf) /HPF (0-Trace); Urine Squamous Epithelial Cell Present /HPF (Absent); Urine White Blood Cell 2+(11-20/hpf) /HPF (0-Trace)
[2024-01-01] MEDS: Acetaminophen IV 1 GM/100ML 1,000 MG/100 ML BAG IV SCH (19:33)
[2024-01-02] MEDS: Pantoprazole VIAL 40 MG VIAL IV SCH ×2 (02:12→12:40)
[2024-01-02 05:52] LABS: ABS Basophils 0.1 10^3/uL (0.0-0.1); ABS Eosinophils 0.4 10^3/uL (0.0-0.5); ABS Lymphocytes 1.5 10^3/uL (1.0-4.8); ABS Monocytes 0.9 10^3/uL (0.0-0.9); ABS Neutrophils 8.5 10^3/uL (1.5-7.6); Eosinophil % 3.6 %; Hematocrit 31.5 % (35-45); Mean Corpuscular Hemoglobin 25.6 pg (27-33); Mean Corpuscular Hgb Conc 31.7 g/dL (31-36); Mean Corpuscular Volume 80.8 fL (80-97); Mean Platelet Volume 7.7 fL (7.5-11.2); Platelet Count 335 10^3/uL (150-450); Red Cell Distribution Width 21.2 % (12-17); White Blood Count 11.4 10^3/uL (3.8-11.8)
[2024-01-02 06:11] LABS: Calcium 9.2 mg/dL (8.6-10.3); Creatinine, Serum 1.16 mg/dL (0.51-0.95); Potassium 5.1 mmol/L (3.5-5.0); eGFR CKD-EPI 48.9 (>60)
[2024-01-02] MEDS ORDERED: Naloxone 0.4 mg VIAL 0.4 mg/ml 1 ml VIAL IV PRN (07:05)
[2024-01-02] MEDS ORDERED: Metoclopramide 5 MG/ML VIAL (10 mg) IV PRN (07:05)
[2024-01-02] MEDS ORDERED: NS 0.45% 1000 ml BAG 1,000 ML IV SCH (08:00)
[2024-01-02] MEDS ORDERED: Sulfur Hexaflouride MICROSPHR 25 MG VIAL ONE (09:21)
[2024-01-02] MEDS: Acetaminophen IV 1 GM/100ML 1,000 MG/100 ML BAG IV ONE (12:40)
[2024-01-02] MEDS ORDERED: Scopolamine 1 mg/72hr PATCH ONE (14:43)
[2024-01-02] MEDS ORDERED: ceFAZolin 2 GM in NS PREMIX 2 GM/100 ML BAG IVPB ONE (14:43)
[2024-01-02] MEDS ORDERED: Albuterol 2.5mg/3 ml (0.083%) NEB.SOLN INH ONE (15:09)
[2024-01-02] MEDS ORDERED: Dexamethasone IV 4 MG/ML VIAL 1 ml VIAL ONE (15:44)
[2024-01-02] MEDS ORDERED: Rocuronium 50 mg VIAL 10 mg/ml 5 ml VIAL (50 mg) ONE ×2 (15:44→17:31)
[2024-01-02] MEDS ORDERED: Dexmedetomidine 200 mcg/2 ml 2 ml VIAL (200 mcg) ONE (15:44)
[2024-01-02] MEDS ORDERED: Ondansetron 4 mg VIAL 2 MG/ML 2 ml VIAL ONE ×2 (15:44→19:13)
[2024-01-02] MEDS ORDERED: Albumin Human 5% 12.5 GM/250 ML BTL IV ONE (15:56)
[2024-01-02] MEDS ORDERED: ROPIVACAINE 5 MG/ML 30 ML BTL (0.5%) ONE (16:15)
[2024-01-02] MEDS ORDERED: Tranexamic Acid 1 GM/100ML BAG 2,000 MG/200 ML BAG IV ONE (16:23)
[2024-01-02] MEDS ORDERED: fentaNYL 100 mcg/2 ml 50 MCG/ML VIAL ONE ×2 (16:27→19:13)
[2024-01-02] MEDS ORDERED: Midazolam 2 mg/2 ml VIAL 1 mg/ml 2 ml VIAL (2 mg) ONE (16:27)
[2024-01-02] MEDS ORDERED: Phenylephrine 40 mcg/mL 10mL (400mcg) SYRINGE ONE (16:35)
[2024-01-02] MEDS ORDERED: Propofol 10 MG/ML 20 ML BTL ONE (18:39)
[2024-01-02] MEDS ORDERED: Ondansetron 4 mg VIAL 2 MG/ML 2 ml VIAL IV PRN (19:00)
[2024-01-02] MEDS ORDERED: Magnesium Hydroxide LIQ 30 ML UDC PO PRN (19:00)
[2024-01-02] MEDS ORDERED: Ondansetron ODT 4 mg TAB 4 MG TAB PO PRN (19:00)
[2024-01-02] MEDS ORDERED: Lactulose 30 ml UDC PO PRN (19:00)
[2024-01-02] MEDS ORDERED: Calcium Carb (TUMS) 500 mg CHEW TAB PO PRN (19:00)
[2024-01-02] MEDS: Ondansetron 4 mg VIAL 2 MG/ML 2 ml VIAL IV PRN (19:15)
[2024-01-02] MEDS: fentaNYL 100 mcg/2 ml 50 MCG/ML VIAL IV PRN (19:15)
[2024-01-02] MEDS: Lactated Ringers 1000 ml BAG 1,000 ML IV SCH ×2 (21:03→22:33)
[2024-01-02] MEDS: Magnesium Hydroxide LIQ 30 ML UDC PO SCH (21:03)
[2024-01-03] MEDS: ceFAZolin 2 GM in NS PREMIX 2 GM/100 ML BAG IVPB SCH (00:33)
[2024-01-03 06:40] LABS: Calcium 9.2 mg/dL (8.6-10.3); Creatinine, Serum 1.34 mg/dL (0.51-0.95); Potassium 4.7 mmol/L (3.5-5.0); eGFR CKD-EPI 41.1 (>60)
[2024-01-03 07:16] LABS: ABS Lymphocytes 0.8 10^3/uL (1.0-4.8); ABS Monocytes 1.2 10^3/uL (0.0-0.9); ABS Neutrophils 15.6 10^3/uL (1.5-7.6); Anisocytosis 1+; Hematocrit 31.2 % (35-45); Hemoglobin 9.9 g/dL (11.5-14.3); Lymphocyte % 4.4 %; Mean Corpuscular Hemoglobin 26.2 pg (27-33); Mean Corpuscular Hgb Conc 31.9 g/dL (31-36); Mean Platelet Volume 7.8 fL (7.5-11.2); Platelet Count 425 10^3/uL (150-450); Polychromasia 1+; Red Cell Distribution Width 20.7 % (12-17); White Blood Count 17.6 10^3/uL (3.8-11.8)
[2024-01-03] MEDS: Vitamin THERAPEUTIC TAB PO SCH (09:21)
[2024-01-03] MEDS: Scopolamine 1 mg/72hr PATCH TRANSDERM ONE (09:54)
[2024-01-03] MEDS: Buffered Lidocaine 1% SYRIN 1 ml INTRADERM ONE (09:54)
[2024-01-03] MEDS: ceFAZolin 2 GM/50 ML BAG IV ONE (17:16)
[2024-01-04 06:31] LABS: Hematocrit 25.7 % (35-45); Hemoglobin 8.4 g/dL (11.5-14.3); Mean Platelet Volume 7.6 fL (7.5-11.2); Platelet Count 280 10^3/uL (150-450)
[2024-01-04 13:43] LABS: Hemoglobin 8.7 g/dL (11.5-14.3)
[2024-01-04] MEDS ORDERED: Polyethylene Glycol 3350 17 GM PACKET PO PRN (16:48)
[2024-01-05 06:08] LABS: Hematocrit 28.5 % (35-45); Hemoglobin 9.2 g/dL (11.5-14.3); Mean Platelet Volume 7.9 fL (7.5-11.2); Platelet Count 376 10^3/uL (150-450)
[2024-01-05 06:21] LABS: Calcium 8.9 mg/dL (8.6-10.3); Creatinine, Serum 1.2 mg/dL (0.51-0.95); Potassium 4.2 mmol/L (3.5-5.0); eGFR CKD-EPI 46.9 (>60)
[2024-01-05 10:16] VITALS: BP 140/72
== END 2024-01-05 12:45 | DRG 521 ==
LOC: ED 11:38 → EDHOLD 17:51 → MEDTELE 20:18 → SSU 01-02 16:19
PROVIDERS: ADMIT Hospitalist; ATTEND Internal Medicine